=== PATIENT | male | born 2000 | race African-American/Black ===

== ENCOUNTER 2024-05-24 02:38 | Emergency (ER) | payer SELFPAY ==
[2024-05-24] MEDS: ACETAMINOPHEN 325MG TABLET PO ONE (03:45)
[2024-05-24] MEDS ORDERED: AZIT1PAC9 MT (04:38)
[2024-05-24 04:50] VITALS: BP 121/69; PULSE 87; RESP 20; TEMP 37.28076; O2SAT 100
[2024-05-24] MEDS ORDERED: TAM75 MT (05:32)
== END 2024-05-24 05:04 | disposition home or self-care (01) ==
LOC: ER 03:12
DX: J11.1 Influenza due to unidentified influenza virus with other respiratory manifestations (principal); F17.210 Nicotine dependence, cigarettes, uncomplicated; Z20.822 Contact with and (suspected) exposure to COVID-19
CPT/HCPCS: 87426; 87804; 99283